=== PATIENT | male | born 1990 | race Caucasian/White ===

== ENCOUNTER 2020-02-09 22:26 | Emergency (ER) | payer OTHER, SELFPAY ==
--- NOTE | ~2020-02-09 | XR_ITS ---
EXAMINATION: XR chest 1V portable 02/10/2020 01:40 INDICATION: Dyspnea. Pneumonia. PROCEDURE: AP portable chest COMPARISON: 05/21/2018 FINDINGS: The lungs are clear. The cardiomediastinal silhouette is within normal limits. There are no pleural effusions. There is no pneumothorax suspected. IMPRESSION: 1: NO ACUTE CARDIOPULMONARY DISEASE. Reviewed, dictated and finalized at location A. [employer]
--- NOTE | ~2020-02-09 | CT_ITS ---
EXAMINATION: CT abdomen pelvis w con DATE: 02/10/2020 00:12 INDICATION: Right upper quadrant pain TECHNIQUE: Computed tomography (CT) of the abdomen and pelvis was performed with 100 cc Omnipaque 350 intravenous contrast. The dose-length product was 1561.54 mGy-cm. Automated exposure control and ite rative reconstruction technique were employed. COMPARISON: None. FINDINGS: Patchy multifocal groundglass opacities of the right middle and lower lobes, suspicious for pneumonia. Heart size normal. No significant vascular abnormality. No lymphadenopathy. Fatty infiltration of the liver. The spleen, pancreas, adrenal glands and kidneys are unremarkable. N onobstructive bowel gas pattern. No free air or free fluid. No lymphadenopathy. No acute osseous abno rmality. IMPRESSION: 1. Patchy multifocal groundglass opacities of the lower lung zones, suspicious for pneumonia. Reviewed, dictated and finalized at location A. [employer]
[2020-02-09 22:27] VITALS: BP 149/93; PULSE 124; RESP 20; TEMP 35.9; O2SAT 100
--- NOTE | 2020-02-09 22:40 | ED.ABDPAIN ---
HPI - Abdominal Pain General Chief Complaint: Abdominal Pain Stated Complaint: abd. pain Time Seen by Provider: 02/09/20 22:39 History of Present Illness HPI narrative: RUQ pain for more than 1 week. Associated with nausea and diarrhea. He reports multiple green mucousy stools per day. He also has frequent urination and urine darker than usual. He has a h/o previous cholecystectomy. He had a negative COVID test recently. Related Data Allergies Allergy/AdvReac Type Severity Reaction Status Date / Time No Known Allergies Allergy Unknown Unverified 05/21/18 20:24 Review of Systems Review of Systems: All systems reviewed & are unremarkable except as noted in HPI and below Constitutional: Constitutional: Denies chills and Denies fever(s) Cardiovascular: Cardiovascular: Denies chest pain Respiratory: Respiratory: Denies cough and Denies dyspnea Gastrointestinal: Gastrointestinal: Reports abdominal pain, Reports bloating, Reports diarrhea and Reports nausea Genitourinary: Genitourinary: Denies hematuria, Denies dysuria and Reports urinary frequency Neurologic: Denies dizziness and Denies weakness Endocrine: Endocrine: Reports fatigue and Denies polydipsia [facility] Past Medical History Medical History (Updated 02/10/20 @ 03:52 by David Gómez MD) Obese Surgical History Surgical History (Updated 02/10/20 @ 03:52 by David Gómez MD) History of cholecystectomy Social History Social History (Updated 02/10/20 @ 03:52 by David Gómez MD) Smoking status: Never smoker Comments unknown family history due to adoption Exam Const: General: no acute distress and alert Nutritional Appearance: obese Orientation/consciousness: patient oriented x3 HENMT: Head: normal to inspection Resp: Effort & Inspection: normal respiratory effort Auscultation: clear to auscultation bilaterally Cardio: Rate: regular rate Rhythm: regular rhythm GI: Inspection: non-distended GI Palp: Yes Soft to palpation, Yes Tenderness to palpation present (GI) (RUQ), No Guarding due to palpation present (GI) and No Rebound tenderness present Auscultation: normal bowel sounds Skin: General skin exam: normal color Neuro: General: patient oriented x3, moves all extremities and CN's II-XI intact bilaterally Speech: normal speech Extrem: General: normal to inspection Course Vital Signs Vital signs: Vital Signs Temperature 35.9 C L 02/09/20 22:27 Pulse Rate 124 H 02/09/20 22:27 Respiratory Rate 20 02/09/20 22:27 Blood Pressure 149/93 H 02/09/20 22:27 Pulse Oximetry 100 02/09/20 22:27 Temperature 36.6 C 02/10/20 02:22 Pulse Rate 87 02/10/20 02:22 Respiratory Rate 20 02/10/20 02:22 Blood Pressure 138/89 02/10/20 02:22 Pulse Oximetry 99 02/10/20 02:22 MDM - Abdominal Pain MDM Narrative Medical decision making narrative: DD: SBO, colitis, bacterial overgrowth, dehydration, new onset DM,UTI Possible pneumonia on CT. CXR relatively unremarkable. He denies symptoms suggestive of pneumonia. Could be COVID, will test. Medical Records Attestation: I reviewed the patient's medical records. Lab Data Attestation: I reviewed the patient's lab results. Result diagrams: 02/09/20 23:30 02/09/20 23:30 Labs: Lab Results 02/09/20 02/09/20 02/10/20 Range/Units 23:30 23:30 00:59 WBC 3.0 L (4.5-10.0) K/mm3 RBC 5.37 (4.6-6.20) M/mm3 Hgb 16.1 (14.0-18.0) g/dL Hct 46.0 (42.0-52.0) % MCV 85.7 (80-100) fl MCH 30.0 (26-34) pg MCHC 35.0 (32-36) g/dl RDW 11.5 (11.5-14.5) % Plt Count TNP MPV TNP Immature Gran % (Auto) 0.3 (0-0.5) % Neut % (Auto) 42.3 L (45.5-73.1) % Lymph % (Auto) 46.7 H (18.3-44.2) % [place] % (Auto) 9.3 H (2.6-8.5) % Eos % (Auto) 0.7 (0-4.4) % Baso % (Auto) 0.7 (0.2-1.2) % Lymph # (Auto) 1.41 (0.9-3.2) K/mm3 [place] # (Auto) 0.3 (0.1-0.6) K/mm3 Eos # (Auto) 0.0
[2020-02-09 23:37] LABS: Basophils Percent Auto 0.7 % (0.2-1.2); Eosinophils Percent Auto 0.7 % (0-4.4); Hemoglobin 16.1 g/dL (14.0-18.0); Immature Granulocyte Absolute 0.01 K/mm3 (0.00-0.031); Immature Granulocyte Percent A 0.3 % (0-0.5); Lymphocytes Absolute Auto 1.41 K/mm3 (0.9-3.2); Lymphocytes Percent Auto 46.7 % (18.3-44.2); Mean Corpuscular Volume 85.7 fl (80-100); Monocytes Absolute Auto 0.3 K/mm3 (0.1-0.6); Monocytes Percent Auto 9.3 % (2.6-8.5); Neutrophils Absolute Auto 1.3 K/mm3 (1.3-6.7); Neutrophils Percent Auto 42.3 % (45.5-73.1); Red Blood Count 5.37 M/mm3 (4.6-6.20); Red Cell Distribution Width 11.5 % (11.5-14.5)
[2020-02-09 23:54] LABS: Alanine Aminotransferase 71 U/L (4-50); Albumin Level 4.1 g/dL (3.5-5.1); Alkaline Phosphatase 105 U/L (38-126); Anion Gap 9 mmol/L (8-16); Aspartate Amino Transferase 65 U/L (17-59); Blood Urea Nitrogen 12 mg/dL (9-20); Carbon Dioxide 31 mmol/L (22-30); Chloride 101 mmol/L (98-107); Estimated CRCL calculation 134 ml/min; Estimated Glomerular Filt Rate > 60; Glucose 113 mg/dL (75-110); Lipase 33 U/L (23-300); Sodium 141 mmol/L (137-145)
[2020-02-10 00:05] LABS: Platelet Clumps Present; Platelet Estimate Adequate (Adequate)
[2020-02-10] MEDS: SODIUM CHLORIDE 0.9% IV 1,000 ML 999 ML IV CONT (00:58)
[2020-02-10 01:12] LABS: Add Urine Microscopic? YES; Appearance Urine Clear (Clear); Bilirubin Urine Negative (Negative); Blood Urine Negative (Negative); Color Urine Yellow (Yellow); Glucose Urine UA Negative (Negative); Ketones Urine Negative (Negative); Leukocyte Esterase Ur Negative LEU/UL (Negative); Mucus Urine Moderate /lpf; Nitrate Urine Negative (Negative); Protein Urine 1+ mg/dL (Negative); RBC Urine 0-2 /hpf (0-2); Squamous Epithelial Cell Urine Rare /hpf (Few); Urobilinogen Urine Negative mg/dL (<2.0); WBC Urine 0-3 /hpf
[2020-02-10 01:14] LABS: Specific Grav Ur > 1.060 (1.001-1.035)
[2020-02-10 02:22] VITALS: BP 138/89; PULSE 87; RESP 20; TEMP 36.6; O2SAT 99
[2020-02-12 17:05] LABS: SARS-CoV-2 RNA PCR Negative
== END 2020-02-10 04:05 | disposition home or self-care (01) ==
PROVIDERS: Emergency Provider Emergency Medicine; PCP Internal Medicine Gastroenterology
DX: R19.7 Diarrhea, unspecified (principal); R10.11 Right upper quadrant pain
CPT/HCPCS: 36415; 71045; 74177; 80053; 81001; 83690; 85025; 87635; 96360; 96361; 99284; C9803; J7030; Q9967; U0003